=== PATIENT | female | born 1945 | race Caucasian/White ===

== ENCOUNTER → 2017-11-14 06:52 | Day surgery (SDC) | payer MEDICARE ==
[~2017-11-14 06:52] MED LIST: Heparin 2 UNITS/ML IVPREMIX* 3,000 ML IV ONE; Heparin(*) 1000 UNIT/ML 10 ML VIAL CATH LAB IV ONE; Iohexol 350 (CONTRAST) 200 ML MDV IV ONE; Ketorolac INJ* 30 MG/ML 1 ML VIAL ONE; LORazepam TAB(*) 1 MG ONE; Lidocaine 1% INJ* 10 MG/ML 30 ML SDV ONE; Midazolam* 1 MG/ML 10 ML VIAL (10 MG) ONE; fentaNYL* 50 MCG/ML 2 ML VIAL (100 MCG VIAL) ONE
[2017-11-14 07:50] LABS: Hematocrit 42 % (35-47); Hemoglobin 14.2 g/dl (12.0-16.0); Mean Corpuscular HGB Conc 34 g/dl (31-36); Mean Corpuscular Hemoglobin 34 pg (27-31); Mean Corpuscular Volume 99 fL (80-97); Mean Platelet Volume 9 um3 (7.4-10.4); Platelet Count 273 10^3/ul (150-450); Red Blood Count 4.23 10^6/ul (4.0-5.4); Red Cell Distribution Width 13 % (10.5-15); White Blood Count 6.5 10^3/ul (3.5-10.8)
[2017-11-14 08:04] LABS: EGFR Non-African American 110.7 (>60)
[2017-11-14 08:17] LABS: INR 0.79 (0.77-1.02)
[2017-11-14 08:20] LABS: ABS Basophils 0.1 10^3/ul (0-0.2); ABS Eosinophils 0.5 10^3/ul (0-0.6); ABS Monocytes 0.9 10^3/ul (0-0.8); ABS Neutrophils 3.1 10^3/ul (1.5-7.7); ABS Nucleated RBC 0 10^3/ul; Eosinophil % 7.4 % (0-6); Lymphocyte % 30.5 % (25-47); Nucleated Red Blood Cells % 0
--- NOTE | 2017-11-14 14:20 | PN ---
Progress Note - Progress Note Date of Service: 11/14/17 SOAP: Subjective: Patient denies pain or nausea. Ate lunch. Wants to go home. 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 Plan: 1. D/C to home. 2. Continue Plavix 75 mg PO daily for 6 months. 3. ASA 81 mg PO daily for life. 4. Routine Interventional Radiology follow up will include RN call Friday, and 1 month ANASTASIA and clinic follow up.
[2017-11-14 14:24] VITALS: BP 114/78
--- NOTE | 2017-11-14 17:11 | RAD ---
CPT II Codes: 6045F Procedure(s) performed: 1. Diagnostic infrarenal abdominal aortogram and pelvic arteriogram. 2. Right lower extremity arteriogram from the iliac arteries to the proximal right foot pedal arteries. 3. Balloon angioplasty of the right external iliac artery, internal iliac artery and right common iliac artery. 4. Percutaneous arterial closure of the left common femoral arteriotomy. Date of service: November 14, 2007. Indication for procedure: 1. Right buttock, hip and lower extremity claudication. 2. Right lower extremity rest pain. Comparison: CTA with runoff dated August 26, 2017 and ANASTASIA dated July 08, 2017 Contrast: 85 mL Omnipaque 350 Fluoroscopy Time: 16.3 minutes Vessels Accessed: Percutaneous access was obtained with ultrasound guidance in the left common femoral artery in the retrograde direction towards the heart. Catheter arteriography, with the catheter tip located within the lumen of the following arteries, was performed at the left external iliac artery, aorta, right common iliac artery, right external iliac artery and right superficial femoral artery. Anesthesia: Conscious sedation with IV Fentanyl and Versed as well as local 1% lidocaine injected locally at the arteriotomy site. Conscious sedation time: Timeout: 0915 hours Case end: 1104 hours Total conscious sedation time: 1 hour and 49 minutes Additional medications: * IV heparin 5000 Units. * The patient received 2 mg of p.o. Ativan prior to the onset of the procedure. PROCEDURE NOTE AND INTRAPROCEDURAL IMAGING FINDINGS: Immediately prior to the procedure the patient signed consent after thoroughly discussing all risks, benefits and alternative therapies. The patient was positioned on the fluoroscopy table in the supine position and the bilateral groins were shaved, prepped and the patient was draped in standard sterile fashion. Using fluoroscopic imaging the location of the left common femoral head was marked externally with a skin marker on the patient's groin. Utilizing sonographic guidance and palpation, the left common femoral artery was cannulated overlying the femoral head with a 21 needle. An ultrasound image was saved. A microwire was advanced into the needle under fluoroscopic control as far as the infrarenal abdominal aorta. No severe buckling or looping of the wire was seen to indicate dissection. The needle was removed and a 5-Filipino sheath was advanced into the artery. The inner stiffener was removed from the sheath and a hydrophilic 0.035 inch wire was advanced into the aorta under fluoroscopic control. Finally, over the wire a 7-Filipino SideArm sheath was advanced into the left common femoral artery until the tip terminated at the left external iliac artery. Through the side arm of the access sheath arteriography of the left common femoral artery demonstrated an appropriate puncture of the common femoral artery above the bifurcation and below the inferior epigastric artery. Patent in-line flow is documented from the left common iliac artery into the proximal femoral profundus and left superficial femoral artery. To further characterize and exactly locate the extent of atherosclerotic disease involving the infrarenal abdominal aorta, bilateral iliac arterial system and right lower extremity, diagnostic catheter arteriography was necessary. Over the hydrophilic wire a 5-Filipino pigtail catheter was advanced to the infrarenal abdominal aorta and aortogram was performed. The aortogram again demonstrates irregular mural atheromatous disease of the lower abdominal aorta. There are filling defects and stenosis at the distal most right common iliac artery extending into the proximal most portions of the right internal and external iliac arteries. The right external iliac arteries are adequately patent providing in-line flow into the proximal femoral profundus and superficial femoral artery. Utilizing the hydrophilic wire and a 5-Filipino C2 catheter the contralateral iliac arterial system was accessed. The C2 catheter was exchanged for a curved tip 4-Filipino catheter. Catheter arteriography with the tip of the catheter in the right external iliac artery was performed further confirming patency of the distal portion of the right external iliac artery and demonstrating in-line flow through the right common femoral artery and superficial femoral artery. Next, luminal arterial pressures were obtained simultaneously of the right external iliac artery through the 4-Filipino catheter and the left external iliac artery through the 7-Filipino SideArm sheath. The following pressures were simultaneously acquired (mm Hg): SBP DBP Mean REIA: 83 [id number] JOVANNA: [id number] This was followed by Pressure Transduction through the 4-Filipino curved tip catheter according to the "pullback technique" beginning in the right external iliac artery and terminating in the right common iliac artery. The following pressures were simultaneously acquired (mm Hg): SBP DBP Mean REIA: 85 [id number] RCIA: 109 [id number] 67 Simultaneous pressure transduction was acquired with the 4-Filipino catheter in the lumen of the right common iliac artery and compared to the left external iliac artery via the 7-Filipino access sheath. The following pressures were simultaneously acquired (mm Hg): SBP DBP Mean RCIA: 109 [id number] 69 JOVANNA: 115 44 72 These measurements indicated that the stenoses identified at the junction of the distal right common iliac artery and right external iliac artery bordered on clinical significance. An arteriogram was performed with the tip of the catheter in the right common iliac artery to more carefully visualized flow-limiting stenoses at the right iliac arteries. At this point, the right lower extremity arteriogram was completed. Utilizing the hydrophilic 0.035 inch wire and 4-Filipino catheter the tip of the catheter was advanced to the mid-level right superficial femoral artery. Catheter arteriography demonstrates widely patent flow through the remainder of the right SFA and popliteal artery. With the catheter still in the right SFA arteriography of the infrapopliteal arteries demonstrates patent in-line flow provided mainly by the right posterior tibial artery supplemented by the peroneal artery. There is delayed filling from collateralized flow of the right anterior tibial artery and dorsalis pedis artery. The plantar arteries receive in-line flow from the posterior tibial artery. In light of the patient's clinical symptoms including right hip and buttock claudication there was determined that treating the stenotic right iliac arteries was clinically indicated. Over a stiff hydrophilic wire the short 7-Filipino access sheath was exchanged for a 45 cm length, 7-Filipino Triston access sheath and the tip was advanced with fluoroscopic control to the right common iliac artery. Arteriography performed through the sheath demonstrates appropriate position and narrowing at the right iliac arteries identified before. Over the wire balloon angioplasty was performed at the right external iliac artery and distal most right common iliac artery with a 5 mm x 60 mm [employer] Passeo balloon. The balloon remained inflated for minimum of 3 minutes to address potential arterial spasm. Subsequent arteriogram performed through the side arm of the access sheath shows improved and brisk patent flow through the angioplastied right common and external iliac arteries. Utilizing the soft hydrophilic wire the right internal iliac artery was cannulated. Over the wire the ostium and superior most portion of the right internal iliac artery was balloon angioplastied with a 5 mm x 40 mm Vista balloon. The balloon remained inflated for a total of 3 minutes to address vasospasm. At the time of this dictation, the images of the right internal iliac artery angioplasty (series 14) are incorrectly labeled "right Vista 6 x 40" The following pressures were simultaneously acquired (mm Hg): SBP DBP Mean REIA: 82 [id number] 60 RCIA: 119 43 70 Not satisfied with the persisting gradient across the right common and external iliac artery. A 6 mm x 40 mm [employer]ronik Passeo-35 balloon was advanced and balloon angioplasty was performed to cover the proximal right external iliac artery, the junction with the right common iliac artery and the distal most portion of the right common iliac artery. Two balloon inflations were performed, each for 3 minutes to address arterial spasm. Post angioplasty arteriogram through the side arm of the access sheath shows improved brisk flow through the previously stenotic distal right common iliac artery, proximal right external iliac artery and proximal right internal iliac artery. Over the wire the 45 cm length access sheath was exchanged for the 7-Filipino, 11 cm length access sheath. After an appropriate resterilization of the arteriotomy and exchange for new sterile gloves, a Minx closure device was deployed at the left common femoral arteriotomy and pressure held for approximately 15 minutes. There were no signs of bleeding at the percutaneous arterial access site and the site was dressed with sterile gauze and Tegaderm. The patient tolerated the procedure well and was transferred to angiography holding bay for standard post procedural observation. SUMMARY OF PROCEDURE, IMAGING FINDINGS AND INTERVENTIONS PERFORMED: 1. Diagnostic studies performed: * Arterial access was obtained at the left common femoral artery in the retrograde direction (i.e. towards the heart) with ultrasound guidance. A sonographic image was recorded. * Diagnostic catheter angiography (necessary to perform the appropriate interventions) was performed with the catheter tip in the left external iliac artery, infrarenal abdominal aorta, right common iliac artery, right external iliac artery and right superficial femoral artery. * Catheter arteriography was performed of the abdominal aorta, bilateral iliac arterial system, proximal left superficial femoral artery and the entire right lower extremity artery as far as the hindfoot pedal arteries. * At the beginning of the procedure arteriography was performed through the side arm of the access sheath to image the distal left external iliac artery, left common femoral artery and proximal superficial femoral artery and femoral profundus. * Catheter Pressure Transduction was performed at the bilateral iliac arteries as described and recorded in the report. 2. Interpretation of diagnostic studies performed: * Stenoses involving the distal right common iliac artery, proximal right internal iliac artery and proximal right external iliac artery. * Pressure transduction above and below this after mentioned stenosis was just below the threshold for clinical significance. In light of the patient's clinical history of right buttock, hip and lower extremity claudication, the decision was made to perform balloon angioplasty. * Arteriography performed for the purpose of deploying a percutaneous arterial closure device demonstrates adequately patent left external iliac artery, common femoral artery and proximal superficial femoral artery and femoral profundus. * In-line flow is documented from the right external iliac artery to the distal popliteal artery. * The right anterior tibial artery is occluded and fills by reconstituted flow provided by the branches of the peroneal and posterior tibial artery. 3. Surgical interventions performed: * Balloon angioplasty of the right distal common iliac artery, proximal right external iliac artery and proximal right internal iliac artery. * Closure of the right common femoral artery was achieved with a Minx closure device followed by 15 minutes of gentle manual pressure. 4. Interpretation of interventions performed: * Final arteriography demonstrated improved flow through the right iliac arteries as described above.. Plan: 1. Aspirin 81 mg p.o. daily for life. 2. Plavix 75 mg p.o. daily x 6 months. 3. Clinical and imaging follow-up according to standard Interventional Radiology protocol.
== END | disposition home or self-care (01) ==
LOC: CHICATH 06:52
PROVIDERS: ATTEND Radiology Diagnostic Radiology
DX: I70.213 Atherosclerosis of native arteries of extremities with intermittent claudication, bilateral legs (principal); M79.604 Pain in right leg; Z72.0 Tobacco use
CPT/HCPCS: 36415; 75625; 76937; 80048; 85025; 85610; 85730; 99156; 99157; A9270-GY; C1725; C1760; C1769; C1887; C1894; J1644; J1885; J2250; J3010

== ENCOUNTER 2023-11-21 14:24 | Observation (INO) ==
[2023-11-21] MEDS: NS 0.9% 1000 ml BAG 1,000 ML IV ONE (15:48)
[2023-11-21] MEDS: methylPREDNISolone SOD SUCC 125 mg 2 ML VIAL IV ONE (15:48)
[2023-11-21] MEDS: Albuterol/Ipratropium NEB.SOL (2.5/0.5 MG) 3 ML NEB.SOLN INH PRN (15:53)
[2023-11-21 15:54] LABS: Venous Bicarbonate HCO3 31.9 mmol/L (24-28)
[2023-11-21 15:58] LABS: ABS Lymphocytes 0.4 10^3/uL (1.0-4.8); ABS Neutrophils 4.5 10^3/uL (1.5-7.6); Hematocrit 43.2 % (35-45); Hemoglobin 14.5 g/dL (11.5-14.3); Lymphocyte % 6.9 %; Mean Corpuscular Hemoglobin 34.2 pg (27-33); Mean Corpuscular Hgb Conc 33.6 g/dL (31-36); Mean Corpuscular Volume 101.8 fL (80-97); Mean Platelet Volume 10.3 fL (7.5-11.2); Platelet Count 164 10^3/uL (150-450); Red Blood Count 4.25 10^6/uL (3.63-4.92); Red Cell Distribution Width 14.3 % (12-17)
[2023-11-21 16:11] LABS: INR 1.64 (0.83-1.13)
[2023-11-21 16:26] LABS: High Sens Troponin Baseline 30 pg/mL (<15)
[2023-11-21 16:29] LABS: ALT 23 U/L (7-52); AST 41 U/L (13-39); Albumin 4.3 g/dL (3.2-5.2); Albumin/Globulin Ratio 1.4 (1-3); Alkaline Phosphatase 114 U/L (35-149); Anion Gap 8 mmol/L (2-16); Blood Urea Nitrogen 16 mg/dL (6-24); C Reactive Protein 73.59 mg/L (<8.01); CO2 Carbon Dioxide 33 mmol/L (22-32); Calcium 9.5 mg/dL (8.6-10.3); Chloride 94 mmol/L (101-111); Creatinine, Serum 0.64 mg/dL (0.51-0.95); Globulin 3.1 g/dL (2-4); Glucose 127 mg/dL (70-100); Lipase < 10 U/L (11.0-82.0); Potassium 3.3 mmol/L (3.5-5.0); Sodium 135 mmol/L (135-145); Total Bilirubin 0.9 mg/dL (0.2-1.0); Total Protein 7.4 g/dL (6.4-8.9); eGFR CKD-EPI 89.8 (>60)
[2023-11-21] MEDS: Iohexol 350 (CONTRAST) 500 ML MDV IV ONE (18:03)
[2023-11-21] MEDS: KCL 20 MEQ/100 ML IVPREMIX 20 MEQ/100 ML BAG IV ONE (18:33)
[2023-11-21 19:12] LABS: Magnesium 1.8 mg/dL (1.9-2.7)
[2023-11-21] MEDS: Magnesium Sulfate 2 gm BAG 2 GM/50 ML BAG IVPB ONE (21:53)
[2023-11-21] MEDS: metroNIDAZOLE IV 500 MG/100ML 500 MG/100 ML BAG IVPB ONE (21:53)
[2023-11-21] MEDS: cefTRIAXone 1 gm/50 mL D5W 1 GM/50 ML BAG IV ONE (23:18)
[2023-11-22] MEDS: DOXYcycline 100 MG in NS 0.9% 250 ml 250 ML IVPB ONE (00:11)
[2023-11-22] MEDS: SPIRIVA Respimat (tiotropium) 2.5 mcg/inh Inhaler INH SCH (07:13)
[2023-11-22 07:46] LABS: ABS Lymphocytes 0.6 10^3/uL (1.0-4.8); ABS Monocytes 0.4 10^3/uL (0.0-0.9); ABS Neutrophils 3.8 10^3/uL (1.5-7.6); Hematocrit 41.2 % (35-45); Hemoglobin 13.9 g/dL (11.5-14.3); Lymphocyte % 11.5 %; Mean Corpuscular Hemoglobin 34.4 pg (27-33); Mean Corpuscular Hgb Conc 33.7 g/dL (31-36); Mean Platelet Volume 10.4 fL (7.5-11.2); Nucleated Red Blood Cells % 0.1 %/100WBC (0.0-0.8); Platelet Count 150 10^3/uL (150-450); Red Blood Count 4.04 10^6/uL (3.63-4.92); Red Cell Distribution Width 14.2 % (12-17); White Blood Count 4.8 10^3/uL (3.8-11.8)
[2023-11-22 08:23] LABS: Calcium 8.7 mg/dL (8.6-10.3); Creatinine, Serum 0.53 mg/dL (0.51-0.95); Magnesium 2.2 mg/dL (1.9-2.7); Potassium 3.3 mmol/L (3.5-5.0)
[2023-11-22] MEDS ORDERED: Umeclidinium 62.5 MDI(NF) MDI INH SCH (09:00)
[2023-11-22] MEDS: methylPREDNISolone SOD SUCC 40 mg/ml 1 ml VIAL IV SCH (10:02)
[2023-11-22] MEDS: Albuterol HFA INHALER 8 gm MDI INH PRN (16:54)
[2023-11-22] MEDS: MIRTAZAPINE 7.5 MG PO SCH (20:36)
[2023-11-23 01:10] LABS: Urine Appearance Turbid; Urine Bilirubin Negative (Negative); Urine Blood 1+ (Negative); Urine Color Light-Yellow; Urine Glucose Negative (Negative); Urine Ketones Negative (Negative); Urine Nitrite Negative (Negative); Urine Protein Trace (Negative); Urine Specific Gravity 1.007 (1.002-1.030); Urine Urobilinogen Negative (Negative)
[2023-11-23 01:14] LABS: Urine Bacteria 1+ /HPF (Absent); Urine Red Blood Cell 1+(3-5/hpf) /HPF (0-Trace); Urine Squamous Epithelial Cell Present /HPF (Absent); Urine White Blood Cell Trace(0-5/hpf) /HPF (0-Trace)
[2023-11-23] MEDS: Cholecalciferol (VIT D3) 400 units TAB PO SCH (08:47)
[2023-11-23] MEDS: Calcium Polycarbophil 625mg TB PO SCH (08:49)
[2023-11-23] MEDS: Potassium Chlor 20 meq TAB.ER PO SCH (09:00)
[2023-11-24 09:29] VITALS: BP 142/109
== END 2023-11-24 14:30 | disposition home or self-care (01) ==
LOC: EDHOLD 14:24 → ED 14:24 → SUATTDRO 22:38 → MED 11-22 05:25
PROVIDERS: ADMIT Internal Medicine; ATTEND Internal Medicine